=== PATIENT | male | born 1990 | race Hispanic/Latino ===

== ENCOUNTER 2022-10-18 21:37 | Emergency (ER) | payer OTHER ==
[~2022-10-18] VITALS: Ht 165.1 cm; Wt 90.3 kg
[2022-10-18 22:55] VITALS: BP 131/82
== END 2022-10-18 23:26 | disposition home or self-care (01) ==
LOC: EDH 21:37
DX: S01.01XA Laceration without foreign body of scalp, initial encounter (principal); W01.198A Fall on same level from slipping, tripping and stumbling with subsequent striking against other object, initial encounter; Y93.89 Activity, other specified; Y92.89 Other specified places as the place of occurrence of the external cause; Y99.8 Other external cause status
CPT/HCPCS: 70450; 72125